=== PATIENT | female | born 1975 | race Caucasian/White ===

== ENCOUNTER 2022-12-16 01:29 | Emergency (ER) | payer BC ==
[~2022-12-16] VITALS: Ht 165.1 cm; Wt 81.6 kg
[2022-12-16 01:31] VITALS: O2SAT 100
== END 2022-12-16 02:07 | disposition home or self-care (01) ==
LOC: ER 01:36
DX: R07.89 Other chest pain (principal); F41.9 Anxiety disorder, unspecified
CPT/HCPCS: 93005; A4663